=== PATIENT | male | born 1995 | race Caucasian/White ===

== ENCOUNTER 2024-08-04 15:15 | Outpatient (CLI) | payer OTHER, SELFPAY ==
--- NOTE | 2024-08-04 15:15 | MR_ITS ---
WS: [id number] MRI LEFT KNEE NONCONTRAST TECHNIQUE: Axial PD, coronal PD fat sat, coronal PD, sagittal PD, and sagittal PD fat-sat images obtained. CLINICAL INFORMATION: CONTINUED PAIN COMPARISON: None. FINDINGS: Distal quadriceps and patellar tendons are intact. ACL and PCL are intact. Mild chondromalacia patella. Medial and lateral patellar retinacula appear intact. Medial and lateral meniscus appear intact. No acute appearing meniscal tears. Fibular head appears normal. Normal lateral collateral ligament. Normal medial collateral ligament. Normal popliteus. Normal popliteal fossa. Normal bone marrow signal. No other acute findings. MR/MR knee LT wo con* [id number] IMPRESSION: 1. Normal ACL and PCL. 2. Mild chondromalacia patella. 3. No acute appearing meniscal tears. 4. No other acute findings. Outbridge grading: grade II: blister-like swelling/fraying of articular cartila ge extending to surface
== END 2024-08-04 15:16 | disposition home or self-care (01) ==
PROVIDERS: Family Provider Surgery Plastic and Reconstructive Surgery; PCP Nurse Practitioner Family; Visit Provider Nurse Practitioner Family
DX: M25.562 Pain in left knee (principal); M22.42 Chondromalacia patellae, left knee
CPT/HCPCS: 73721

== ENCOUNTER → 2024-09-22 10:21 | Outpatient (BNVA) | payer OTHER, SELFPAY | PROVIDERS: Family Provider Surgery Plastic and Reconstructive Surgery; PCP Nurse Practitioner Family; Visit Provider Specialist | DX: M17.32 Unilateral post-traumatic osteoarthritis, left knee (principal); S83.207A Unspecified tear of unspecified meniscus, current injury, left knee, initial encounter; X58.XXXA Exposure to other specified factors, initial encounter | CPT/HCPCS: 73560; 73565 ==

== ENCOUNTER 2024-09-28 07:38 | Outpatient (CLI) | payer OTHER, SELFPAY | END 2024-09-28 07:39 | disposition home or self-care (01) | LOC: RAD 07:40 | PROVIDERS: PCP Nurse Practitioner Family; Visit Provider Specialist | DX: S83.207A Unspecified tear of unspecified meniscus, current injury, left knee, initial encounter (principal); M17.32 Unilateral post-traumatic osteoarthritis, left knee; X58.XXXA Exposure to other specified factors, initial encounter | CPT/HCPCS: 99204 ==

== ENCOUNTER 2024-10-04 07:56 | Outpatient (CLI) | payer OTHER, SELFPAY ==
--- NOTE | 2024-10-04 08:00 | IR_ITS ---
WS: [id number] LEFT ARTHROGRAM (FLUOROSCOPY) LEFT arthrogram was performed in fluoroscopy prior to MRI evaluation. HISTORY: left knee pain COMPARISON: 09/22/2024 FLUOROSCOPY TIME: 0min [id number] # of spot films: 2 Procedure, risks and complications were explained to the patient. Complications include but not limited to bleeding, infection and contrast reaction. Current medications are reviewed. Skin is cleansed with ChloraPrep. Skin is anesthetized with 1% buffered lidocaine. 22-gauge needle is inserted into the suprapatellar joint. Approximately 40 cc of gadolinium mixture injected without complication. Patient will proceed to MRI evaluation immediately. No complications were encountered. Patient is instructed to watch for post procedure infection or bleeding. Patient is also instructed to contact the radiology department with any concerns. IR/[place] [id number] IMPRESSION: Uncomplicated LEFT knee joint injection prior to MRI arthrogram.
--- NOTE | 2024-10-04 08:15 | MR_ITS ---
WS: [id number] MRI LEFT KNEE POST ARTHROGRAM CONTRAST. COMPARISON: 08/04/2024, radiograph 09/22/2024 Multiplanar, multisequence imaging is performed with intra-articular contrast injection. History: LEFT knee pain for 5 years. Good contrast opacification of the knee. Mildly prominent hypointense band extending into the medial suprapatellar knee joint. Band extends posterior to the patella into the patellofemoral articulation. There are a few additional smaller thin bands in the medial knee. There is an additional hypointense band in the lateral knee compartment also extending posterior to the patella. Thickened hypointense band superior to the patella within the effusion. ACL and PCL are intact. No meniscal tear is identified. Normal position of the patella. There is no significant loss of cartilage. No defects in the cartilage filling with contrast. Normal alignment of the knee. No subluxation of the patella. MR/MR knee LT w con [id number] IMPRESSION: 1. 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 There are n umerous mildly thickened plica in the suprapatellar joint effusion which extend s posterior to the patella and above the patella. 2. No meniscal tear. 3. No significant chondromalacia.
[2024-10-04] MEDS: gadobenate dimeglumine 20 mL vial IV (09:07)
[2024-10-04] MEDS: iohexol 240 mg/mL 50 mL Btl 25 ML INTRA-ARTI (09:08)
== END 2024-10-04 07:57 | disposition home or self-care (01) ==
LOC: RAD 07:57
PROVIDERS: PCP Nurse Practitioner Family; Visit Provider Specialist
DX: M25.562 Pain in left knee (principal)
CPT/HCPCS: 27369; 73722; 77002; A9577; Q9966

== ENCOUNTER 2024-11-05 18:47 | Emergency (ER) | payer OTHER, SELFPAY ==
[2024-11-05 18:53] VITALS: BP 133/91; PULSE 90; RESP 16; TEMP 36.6; O2SAT 97; BMI 29.9
--- NOTE | 2024-11-05 18:57 | XRR_ITS ---
PROCEDURE INFORMATION: Exam: XR Chest Exam date and time: 11/05/2024 7:46 PM Age: 29 years old Clinical indication: Pain; Chest pressure; Additional info: Intermittent mediastinal chest pain that radiates posteriorly; Tenderness to lt anterior chest; PT refused to remove piercings for XR TECHNIQUE: Imaging protocol: Radiologic exam of the chest. Views: 1 view. COMPARISON: No relevant prior studies available. FINDINGS: Lungs: Unremarkable. No consolidation. Pleural spaces: Unremarkable. No pleural effusion. No pneumothorax. Heart/Mediastinum: Unremarkable. No cardiomegaly. Bones/joints: Unremarkable. XR/XR chest 1V portable [id number] IMPRESSION: No acute finding.
--- NOTE | 2024-11-05 18:57 | ECG_ITS ---
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 Measurements Intervals [place] Rate: 84 P: 55 ID: [id number] QRS: 46 QRSD: 90 T: 13 QT: 323 QTc: 382 Interpretive Statements SINUS RHYTHM NONSPECIFIC T-WAVE ABNORMALITY No previous ECG available for comparison Electronically Signed On 11-05-2024 21:50:48 CDT by Naeem Magdaleno M.D. [id number] [id number]
[2024-11-05 20:34] LABS: Hematocrit 42.3 % (37-53); Hemoglobin 14.70 g/dL (11.27-16.99); Mean Corpuscular HGB Conc 34.8 g/dL (30-55); Mean Corpuscular Hemoglobin 33.2 pg (27-33); Mean Corpuscular Volume 95.5 fl (82-101); Nucleated Red Blood Cells % 0 %; Platelet Count 253 10^3/cmm (157-399); Red Blood Count 4.43 10^6/uL (3.85-5.65); White Blood Count 9.70 10^3/uL (3.29-11.43)
[2024-11-05 20:54] LABS: Troponin(5th) Baseline < 6 ng/L (0-15)
[2024-11-05 20:57] LABS: Anion Gap 14.0 (5-19); Blood Urea Nitrogen 17 mg/dL (6-20); Calcium 9.4 mg/dL (8.5-10.5); Carbon Dioxide 29 mmol/L (22-29); Chloride 100 mmol/L (98-107); Creatinine Clr Calc Pharmacy 90.1688; Glucose 91 mg/dL (65-115); Osmolality Calculated 289 mOsm/kg (285-295); Potassium 4.0 mmol/L (3.5-5.1); Sodium 139 mmol/L (136-145)
[2024-11-05 23:11] LABS: Troponin 5 2HR < 6.0 ng/L (0-15); Troponin 5 2HR Delta 0 ABS# (0-10)
== END 2024-11-06 00:10 | disposition left against medical advice (07) ==
PROVIDERS: Emergency Medicine; Emergency Provider Family Medicine; PCP Nurse Practitioner Family
DX: Z01.89 Encounter for other specified special examinations (principal); Z53.21 Procedure and treatment not carried out due to patient leaving prior to being seen by health care provider; R07.89 Other chest pain; R94.31 Abnormal electrocardiogram [ECG] [EKG]
CPT/HCPCS: 36415; 71045; 80048; 84484; 85025; 93005; 99285